=== PATIENT | female | born 1980 | race Caucasian/White ===

== ENCOUNTER 2018-11-15 11:26 | Emergency (ER) | payer BC ==
[~2018-11-15] VITALS: Ht 172.7 cm; Wt 104.3 kg
[~2018-11-15 11:26] MED LIST: PRENATAL VITAM1 EACH; VIMOVO 500-201 EACH PO; VITAMIN B-12
--- OUTSIDE RECORDS SUMMARY | 2018-11-15 11:29 | XMS REPORT | Clinical Summary ---
Author Author [facility] Organization [facility] Address Unknown Phone Unavailable Care Team Providers Care Gas Appliance Adjuster Name Role Phone Asked, No Pcp PCP Unavailable Allergies No Known Allergies Medications End Date Status Medication Sig Dispensed Refills Start Date Active metroNIDAZOLE (FLAGYL) Take 500 mg 0 500 MG tablet by mouth 3 (three) times a day. 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 Last Filed Vital Signs Time Taken Vital Sign Reading 02/08/2018 11:19 AM [facility] Blood Pressure 114/67 02/08/2018 11:19 AM [facility] Pulse 68 02/08/2018 11:19 AM [facility] Temperature 36.8 C (98.2 F) 02/08/2018 11:19 AM [facility] Respiratory Rate 16 02/08/2018 11:19 AM [facility] Oxygen Saturation 98% - Inhaled Oxygen - Concentration - Weight - 02/08/2018 11:20 AM [facility] Height 172.7 cm (5' 8") - Body Mass Index - Plan of Treatment Health Maintenance Due Date Last Done Comments INFLUENZA VACCINE 11/05/2018 Procedures Comments Procedure Name Priority Date/Time Associated Diagnosis US DUPLEX VENOUS LOWER STAT 02/08/2018 EXTREMITY RIGHT 2:30 PM [facility] after 11/14/2017 Results * PV Duplex Venous Lower Extremity (02/08/2018 2:30 PM [facility]) Specimen Narrative Performed At [facility] V[facility] Ultrasound Laboratory Lower Extremity Venous Report [address], [place] [address] Pat.Name:NELSON SAAVEDRA MPat.ID:[id number] St.Date: 02/08/2018 Refer.MD:PHYSICIAN EMERGENCYMD Exam Time: 2:04:00 PMStudy Type:LE Venous DOBAge:1980,37Y Sex: FEMALE Sonogrphr: Ketan Herring, T Room:ER TapeVol: , CPT - 4: 18498 Echo Event ID:[id number] Order ID:[id number] Reason for Study:Right leg swelling, pain and discoloration Procedures:Colorflow, Grayscale/2D, Pulsed wave Doppler Race:C SUMMARY: DUPLEX SCAN OBSERVATIONS Deep VeinsSuperficial Veins RightLeft RightLeft GSV (prox) Ablation CFV Normal Normal (above knee) Femoral NormalGSV (dist) Normal Profunda Normal(below knee) Popliteal Normal PT (prox) Normal SSV Not Visualized PT (dist) Normal Peroneal Normal RIGHT: There is normal compressibility with no evidence of echogenic material noted within the lumen of the visualized veins. Colorflow and Doppler signals are normal. PRELIMINARY FINDINGS 1. Normal venous duplex exam of the visualized veins. Verbal preliminary results given to Dr. Dumont @ [id number] PHYSICIAN INTERPRETATION Venous examination of the right lower extremity and leftgroin demonstrated no evidence of venous thrombosis in the visualized veins. Normal compressibility and augmentation of all veins visualized. Signed 02/08/2018 03:53 PM Robert Lindsey MD, RPVI Procedure Note Interface, Radiology Results In - 02/08/2018 3:53 PM [facility] Lower Extremity Venous Report [address] [place] [address] Pat.Name: NELSON SAAVEDRA Pat.ID: [id number] St.Date: 02/08/2018 Refer.MD: PHYSICIAN EMERGENCYMD Exam Time: 2:04:00 PM Study Type:LE Venous Age: 7 1980,37Y Sex: FEMALE Sonogrphr: Ketan Herring RVT Room: ER Tape Vol: VB, CPT - 4: 68433 Echo Event ID:[id number] Order ID: [id number] Reason for Study:Right leg swelling, pain and discoloration Procedures:Colorflow, Grayscale/2D, Pulsed wave Doppler Race: C SUMMARY: DUPLEX SCAN OBSERVATIONS Deep Veins Superficial Veins Right Left Right Left GSV (prox) Ablation CFV Normal Normal (above knee) Femoral Normal GSV (dist) Normal Profunda Normal (below knee) Popliteal Normal PT (prox) Normal SSV Not Visualized PT (dist) Normal Peroneal Normal RIGHT: There is normal compressibility with no evidence of echogenic material noted within the lumen of the visualized veins. Colorflow and Doppler signals are normal. PRELIMINARY FINDINGS 1. Normal venous duplex exam of the visualized veins. Verbal preliminary results given to Dr. Dumont @ [id number] PHYSICIAN INTERPRETATION Venous examination of the right lower extremity and left groin demonstrated no evidence of venous thrombosis in the visualized veins. Normal compressibility and augmentation of all veins visualized. Signed 02/08/2018 03:53 PM Robert Lindsey MD, RPVI Performing Organization Address City/State/Zipcode Phone Number [facility] [address] [place] [address] after 11/14/2017 Insurance Type Payer Benefit Subscriber ID Effective Phone Address Plan / Dates Group PPO BCBS BCBS xxxxxxxxxxxx [id number] JULIETA resdebra PPO/RUPALI VALLEJO PPO Advance Directives Patient has advance care planning documents on file. For more information, rachell holland contact: [facility] [address] [place] [address]
[2018-11-15] MEDS ORDERED: KETOROLAC TROMETHAMINE 60 MG/2 ML VIAL IM ONE (12:30)
[2018-11-15] MEDS ORDERED: KETOROLAC TROMETHAMINE 60 MG/2 ML VIAL ONE (12:37)
--- NOTE | 2018-11-15 13:42 | Diagnostic Imaging Report ---
CT LUMBAR SPINE WITHOUT-HOPD HISTORY: Back pain, radiating to legs COMPARISON: None. TECHNIQUE: Axial CT images of the lumbar spine were obtained without contrast. Coronal and sagittal reconstructions obtained from the axial data. One or more of the following dose reduction techniques were used: Automated exposure control, adjustment of the mA and/or kV according to patient size, and/or utilization of iterative reconstruction technique. DISCUSSION: There are 5 nonrib-bearing lumbar vertebral bodies. Lumbar lordosis is preserved. There is no significant scoliosis or subluxation. No fracture, compression deformity, or destructive osseous lesion is seen. No gross spinal canal mass is seen. The paravertebral and paraspinal soft tissues are unremarkable. Mild multilevel spondylosis is most prominent at L4-L5. Mild bilateral sacroiliac degenerative changes are present as well. L1-L2: No gross canal or foraminal stenosis. L2-L3: No gross canal or foraminal stenosis. L3-L4: Disc bulge without gross canal or foraminal stenosis. L4-L5: At least moderate canal stenosis due to suspected paracentral disc herniation. Mild bilateral foraminal stenoses due to disc bulge and facet arthrosis. L5-S1: No gross canal or foraminal stenosis. A few small layering gallstones (versus sludge) may be present. Surgical michael adjacent to the stomach are partially visualized. IMPRESSION: 1. No acute osseous abnormalities. 2. Mild multilevel spondylosis, most prominent at L4-L5. 3. At least moderate L4-L5 canal stenosis due to suspected paracentral disc herniation. 4. Mild bilateral L4-L5 degenerative foraminal stenoses. Signed by: Dr. Royce Medeiros M.D. on 11/15/2018 1:39 PM
[2018-11-15 14:03] VITALS: BP 127/65
== END 2018-11-15 14:07 | disposition home or self-care (01) ==
LOC: FSED 11:26
DX: M54.42 Lumbago with sciatica, left side (principal); M54.16 Radiculopathy, lumbar region; Z98.84 Bariatric surgery status
CPT/HCPCS: 72131; 99283; J1885

== ENCOUNTER 2021-03-21 18:28 | Emergency (ER) | payer BC, OTHER ==
[~2021-03-21] VITALS: Ht 172.7 cm; Wt 104.3 kg
[2021-03-21] MEDS ORDERED: ONDANSETRON HCL INJ 2MG/ML 2ML 2 MG/ML VIAL IV STA (19:14)
[2021-03-21] MEDS ORDERED: KETOROLAC TROMETHAMINE 30 MG/ML VIAL IV STA (19:14)
[2021-03-21] MEDS ORDERED: ONDANSETRON HCL INJ 2MG/ML 2ML 2 MG/ML VIAL ONE (19:20)
[2021-03-21] MEDS ORDERED: KETOROLAC TROMETHAMINE 30 MG/ML VIAL ONE (19:20)
[2021-03-21 19:28] VITALS: BP 119/73
== END 2021-03-21 19:26 | disposition home or self-care (01) ==
LOC: FSED 19:05
DX: Z72.820 Sleep deprivation (principal); R51.9 Headache, unspecified; Z98.84 Bariatric surgery status
CPT/HCPCS: 80053; 81003; 81025; 85025; 96374; 96376; 99283; J1885; J2405

== ENCOUNTER → 2021-03-21 | Emergency (ER) | payer BC, OTHER | END | disposition left against medical advice (07) | LOC: ER 18:29 | DX: R69 Illness, unspecified (principal) ==

== ENCOUNTER → 2024-01-10 | Emergency (ER) | payer BC | END | disposition left against medical advice (07) | LOC: ER 14:27 | DX: M54.2 Cervicalgia (principal); Z98.84 Bariatric surgery status ==